=== PATIENT | female | born 2000 | race Two or more races ===

== ENCOUNTER 2018-04-15 23:08 | Emergency (ER) | payer OTHER ==
[~2018-04-15] VITALS: Ht 175.3 cm; Wt 68.2 kg
[2018-04-15] MEDS ORDERED: LORazepam 0.5 MG tablet PO PRN (23:40)
[2018-04-16 01:06] VITALS: BP 133/74
== END 2018-04-16 01:07 | disposition home or self-care (01) ==
LOC: ER 23:08
DX: F41.9 Anxiety disorder, unspecified (principal); R07.9 Chest pain, unspecified
CPT/HCPCS: 93005; 99284

== ENCOUNTER 2018-05-25 17:17 | Emergency (ER) | payer OTHER ==
[~2018-05-25] VITALS: Ht 175.3 cm; Wt 66.8 kg
[2018-05-25 19:20] VITALS: BP 127/80
== END 2018-05-25 20:22 | disposition home or self-care (01) ==
LOC: ER 17:18
DX: R51 Headache (principal); F41.9 Anxiety disorder, unspecified; W01.198A Fall on same level from slipping, tripping and stumbling with subsequent striking against other object, initial encounter; Y93.89 Activity, other specified; Y92.89 Other specified places as the place of occurrence of the external cause; Y99.9 Unspecified external cause status
CPT/HCPCS: 99284

== ENCOUNTER 2019-09-16 14:13 | Emergency (ER) | payer BC, OTHER ==
[~2019-09-16] VITALS: Ht 175.3 cm; Wt 70.0 kg
[2019-09-16] MEDS ORDERED: acetaminophen 325mg tablet PO ONE (14:35)
[2019-09-16] MEDS ORDERED: ketorolac tromethamine 15mg/ml inj. IM ONE (14:35)
[2019-09-16] MEDS ORDERED: LORazepam 1 MG tablet PO ONE (14:35)
[2019-09-16] MEDS ORDERED: diphenhydrAMINE 50 mg/ml inj IM ONE (14:35)
[2019-09-16] MEDS ORDERED: LORazepam 0.5 MG tablet PO ONE (14:40)
[2019-09-16 14:59] VITALS: BP 144/79
[2019-09-16 15:15] LABS: BASOPHILS # (AUTO) 0.1 X10'3 (0-0.2); BASOPHILS % (AUTO) 1.3 % (0-1); EOSINOPHILS # (AUTO) 0.1 X10'3 (0-0.9); EOSINOPHILS % (AUTO) 2.9 % (0-6); HEMOGLOBIN 12.1 g/dl (12.0-16.0); LYMPHOCYTES # (AUTO) 1.9 X10'3 (1.1-4.8); LYMPHOCYTES % (AUTO) 46.1 % (21-51); MEAN CORPUSCULAR HEMOGLOBIN 26.9 PG (27.0-31.0); MEAN CORPUSCULAR HGB CONC 32.6 g/dL (33.0-36.5); MEAN CORPUSCULAR VOLUME 82.5 FL (78-98); MEAN PLATELET VOLUME 8.2 FL (7.4-10.4); MONOCYTES # (AUTO) 0.3 X10'3 (0-0.9); MONOCYTES % (AUTO) 7.2 % (2-12); NEUTROPHILS # (AUTO) 1.8 X10'3 (1.8-7.7); NEUTROPHILS % (AUTO) 42.5 % (42-75); PLATELET COUNT 296 X10'3 (140-440); RED BLOOD COUNT 4.49 X10'6 (4.20-5.60); RED CELL DISTRIBUTION WIDTH 15.9 % (11.5-14.5); WHITE BLOOD COUNT 4.2 X10'3 (4.5-11.0)
[2019-09-16 15:27] LABS: ALANINE AMINOTRANSFERASE 28 U/L (12-78); ALBUMIN 4.2 G/DL (3.4-5.0); ALBUMIN/GLOBULIN RATIO 1.1 (1.1-1.5); ALKALINE PHOSPHATASE 61 IU/L (46-116); ANION GAP 9 (8-16); ASPARTATE AMINO TRANSFERASE 20 U/L (10-37); BILIRUBIN,TOTAL 0.4 MG/DL (0.1-1.0); BLOOD UREA NITROGEN 8 MG/DL (7-18); BUN/CREATININE RATIO 11.1 (6.6-38.0); CALCIUM 8.8 MG/DL (8.5-10.1); CHLORIDE 105 MMOL/L (99-107); CREATININE 0.72 MG/DL (0.40-0.90); GLUCOSE 84 MG/DL (70-104); POTASSIUM 3.7 MMOL/L (3.5-5.1); SODIUM 142 MMOL/L (135-145); TOTAL CARBON DIOXIDE 27.8 MMOL/L (24-32); TOTAL PROTEIN 7.9 G/DL (6.4-8.2); eGFR > 90 ML/MIN
[2019-09-16 15:36] LABS: MAGNESIUM 1.9 MG/DL (1.5-2.4)
== END 2019-09-16 15:41 | disposition home or self-care (01) ==
LOC: ER 14:13
DX: F41.9 Anxiety disorder, unspecified (principal); R42 Dizziness and giddiness
CPT/HCPCS: 36415; 71045; 80053; 83735; 83880; 84484; 85025; 93005; 96372; 99284; J1200; J1885